=== PATIENT | female | born 1995 | race Two or more races ===

== ENCOUNTER 2016-09-27 07:12 | Inpatient (IN) | payer OTHER ==
[2016-09-26 14:00] VITALS: BP 107/88
[~2016-09-27] VITALS: Ht 147.3 cm; Wt 76.2 kg
[2016-09-27] VITALS (10 sets, daily range): BP systolic 89–135; BP diastolic 50–63
[~2016-09-27 07:12] MED LIST: FERR325T58 PO; HYDR-971 PO
[2016-09-27] MEDS ORDERED: CITRIC ACID/SODIUM CITRATE 30 ML SOLUTION. PO ONE (07:45)
[2016-09-27] MEDS ORDERED: ATROPINE 0.5 MG/5 ML DISP.SYRIN. IV PRN (07:45)
[2016-09-27] MEDS ORDERED: IV RINGERS,LACTATED 1000ML 1,000 ML IV PRN (07:45)
[2016-09-27] MEDS ORDERED: NALOXONE 0.4 MG/ML VIAL. IV PRN (07:45)
[2016-09-27] MEDS ORDERED: ePHEDrine PF IN SALINE 50 MG/5 ML DISP.SYRIN IV ONE (08:12)
[2016-09-27] MEDS ORDERED: PHENYLEPHRINE in 0.9% NACL PF 1 MG/10 ML DISP.SYRIN. IV ONE (08:13)
[2016-09-27] MEDS ORDERED: OXYTOCIN 10 UNIT/ML VIAL. ONE ×2 (08:13→09:50)
[2016-09-27] MEDS ORDERED: ONDANSETRON PF 4 MG/2 ML VIAL. ONE (08:15)
[2016-09-27] MEDS ORDERED: fentaNYL PF VIAL 100 MCG/2 ML VIAL ONE (08:15)
[2016-09-27] MEDS ORDERED: FAMOTIDINE 20 MG/2 ML VIAL ONE (08:15)
[2016-09-27] MEDS ORDERED: MORPHINE PF 5 MG/10 ML VIAL. ONE (08:15)
[2016-09-27] MEDS: IV RINGERS,LACTATED 1000ML 1,000 ML IV SCH ×2 (08:24→12:49)
[2016-09-27 08:26] LABS: BASO # 0.1 x10^3/uL (0.0-0.2); BASO % 0 % (0-3); EOS % 1 % (0-3); LYMPH # 2.3 x10^3/uL (1.0-4.8); LYMPH % 18 % (24-48); MEAN CORPUSCULAR HEMOGLOBIN 24 pg (25-35); MEAN CORPUSCULAR HGB CONC 33 g/dL (31-37); MEAN CORPUSCULAR VOLUME 74 fL (79-100); MONO % 6 % (0-9); NEUT % 75 % (31-73); PLATELET COUNT 344 x10^3/uL (140-400); RED BLOOD COUNT 4.08 x10^6/uL (3.50-5.40); RED CELL DISTRIBUTION WIDTH 15.6 % (11.5-14.5); WHITE BLOOD COUNT 13.2 x10^3/uL (4.0-11.0)
[2016-09-27] MEDS ORDERED: ONDANSETRON PF 4 MG/2 ML VIAL. IV PRN (09:30)
[2016-09-27] MEDS ORDERED: SIMETHICONE 80 MG TAB.CHEW PO PRN (09:30)
[2016-09-27] MEDS ORDERED: diphenhydrAMINE ORAL ELIXIR 12.5 MG/5 ML ML PO PRN (09:30)
[2016-09-27] MEDS ORDERED: ZOLPIDEM 5 MG TABLET. PO PRN (09:30)
[2016-09-27] MEDS ORDERED: 0.9 % SODIUM CHLORIDE 10 ML DISP.SYRIN. IV PRN (09:30)
[2016-09-27] MEDS ORDERED: MMR per PROTOCOL. MC PRN (09:30)
[2016-09-27] MEDS ORDERED: MAGNESIUM HYDROXIDE 2,400 MG/30 ML ORAL.SUSP. PO PRN (09:30)
[2016-09-27] MEDS ORDERED: OXYTOCIN 30 UNIT/500 ML PREMIX 500 ML IV PRN (09:30)
[2016-09-27] MEDS ORDERED: MAG HYDROX/ALUMINUM HYD/SIMETH 30 ML ORAL.SUSP PO PRN (09:30)
[2016-09-27] MEDS: KETOROLAC TROMETHAMINE 30 MG/ML INJ. IV PRN (12:48)
--- NOTE | 2016-09-27 14:34 | PDOC ---
BRIEF OPERATIVE NOTE Pre-Op Diagnosis TIUP Post-Op Diagnosis RLTC/S Procedure Performed RLTC/S Surgeon Curry Anesthesia Type: Regional Blood Loss 800c Findings Female 01/21 8#5oz Complications None KAITLYNN DONATO MD September 27, 2016 14:34
[2016-09-28 04:38] LABS: BASO % 0 % (0-3); EOS % 0 % (0-3); HEMATOCRIT 26.4 % (36.0-47.0); HEMOGLOBIN 8.4 g/dL (12.0-15.5); LYMPH # 1.2 x10^3/uL (1.0-4.8); LYMPH % 10 % (24-48); MEAN CORPUSCULAR HEMOGLOBIN 24 pg (25-35); MEAN CORPUSCULAR HGB CONC 32 g/dL (31-37); MEAN CORPUSCULAR VOLUME 75 fL (79-100); MONO % 7 % (0-9); NEUT % 83 % (31-73); PLATELET COUNT 263 x10^3/uL (140-400); RED BLOOD COUNT 3.52 x10^6/uL (3.50-5.40); RED CELL DISTRIBUTION WIDTH 15.8 % (11.5-14.5); WHITE BLOOD COUNT 12.5 x10^3/uL (4.0-11.0)
[2016-09-28] MEDS: KETOROLAC TROMETHAMINE 30 MG/ML INJ. IV PRN (05:51)
[2016-09-28 06:12] VITALS: BP 122/68
[2016-09-28 06:20] LABS: RPR REFLEX Non Reactive (Non Reactive)
[2016-09-28] MEDS: FERROUS SULFATE 325 MG TABLET. PO SCH ×2 (07:44→17:11)
[2016-09-28 11:20] VITALS: BP 110/62
[2016-09-28] MEDS: oxyCODONE/APAP 5/325 1 TAB TABLET PO PRN ×2 (11:42→15:11)
[2016-09-28] MEDS: IBUPROFEN 800 MG TABLET. PO SCH ×2 (11:42→19:53)
--- NOTE | 2016-09-28 13:43 | PDOC ---
OB Progress Note Date of Service 09/28/16 Time of Evaluation 1340 Notes PT. feeling well. Pain controlled. Lochia minimal. Bottle feeding. Lab Laboratory Tests Test 09/27/16 07:50 09/28/16 04:05 White Blood Count 13.2 x10^3/uL (4.0-11.0) 12.5 x10^3/uL (4.0-11.0) Red Blood Count 4.08 x10^6/uL (3.50-5.40) 3.52 x10^6/uL (3.50-5.40) Hemoglobin 10.0 g/dL (12.0-15.5) 8.4 g/dL (12.0-15.5) Hematocrit 30.0 % (36.0-47.0) 26.4 % (36.0-47.0) Mean Corpuscular Volume 74 fL (79-100) 75 fL (79-100) Mean Corpuscular Hemoglobin 24 pg (25-35) 24 pg (25-35) Mean Corpuscular Hemoglobin Concent 33 g/dL (31-37) 32 g/dL (31-37) Red Cell Distribution Width 15.6 % (11.5-14.5) 15.8 % (11.5-14.5) Platelet Count 344 x10^3/uL (140-400) 263 x10^3/uL (140-400) Neutrophils (%) (Auto) 75 % (31-73) 83 % (31-73) Lymphocytes (%) (Auto) 18 % (24-48) 10 % (24-48) Monocytes (%) (Auto) 6 % (0-9) 7 % (0-9) Eosinophils (%) (Auto) 1 % (0-3) 0 % (0-3) Basophils (%) (Auto) 0 % (0-3) 0 % (0-3) Neutrophils # (Auto) 9.9 x10^3uL (1.8-7.7) 10.3 x10^3uL (1.8-7.7) Lymphocytes # (Auto) 2.3 x10^3/uL (1.0-4.8) 1.2 x10^3/uL (1.0-4.8) Monocytes # (Auto) 0.8 x10^3/uL (0.0-1.1) 0.9 x10^3/uL (0.0-1.1) Eosinophils # (Auto) 0.1 x10^3/uL (0.0-0.7) 0.1 x10^3/uL (0.0-0.7) Basophils # (Auto) 0.1 x10^3/uL (0.0-0.2) 0.0 x10^3/uL (0.0-0.2) RPR Titer Additional Testing Non reactive (Non Reactive) Laboratory Tests Test 09/28/16 04:05 White Blood Count 12.5 x10^3/uL (4.0-11.0) Red Blood Count 3.52 x10^6/uL (3.50-5.40) Hemoglobin 8.4 g/dL (12.0-15.5) Hematocrit 26.4 % (36.0-47.0) Mean Corpuscular Volume 75 fL (79-100) Mean Corpuscular Hemoglobin 24 pg (25-35) Mean Corpuscular Hemoglobin Concent 32 g/dL (31-37) Red Cell Distribution Width 15.8 % (11.5-14.5) Platelet Count 263 x10^3/uL (140-400) Neutrophils (%) (Auto) 83 % (31-73) Lymphocytes (%) (Auto) 10 % (24-48) Monocytes (%) (Auto) 7 % (0-9) Eosinophils (%) (Auto) 0 % (0-3) Basophils (%) (Auto) 0 % (0-3) Neutrophils # (Auto) 10.3 x10^3uL (1.8-7.7) Lymphocytes # (Auto) 1.2 x10^3/uL (1.0-4.8) Monocytes # (Auto) 0.9 x10^3/uL (0.0-1.1) Eosinophils # (Auto) 0.1 x10^3/uL (0.0-0.7) Basophils # (Auto) 0.0 x10^3/uL (0.0-0.2) Medications Current Medications Ringer's Solution 1,000 ml @ 125 mls/hr Q8H IV Last administered on 09/27/16t 12:49; Start 09/27/16 at 07:41; Stop 09/27/16 at 19:40; Status DC Atropine Sulfate 0.5 mg PRN 1X PRN IV SEE COMMENTS; Start 09/27/16 at 07:45; Stop 09/28/16 at 07:44; Status DC Naloxone HCl (Narcan) 0.04 mg PRN Q2MIN PRN IV SEE COMMENTS; Start 09/27/16 at 07:45; Stop 09/28/16 at 07:44; Status DC Ringer's Solution 1,000 ml @ 125 mls/hr Q8H PRN IV PER PROTOCOL Last administered on 09/27/16t 22:06; Start 09/27/16 at 07:45 Cefazolin Sodium/ Dextrose 50 ml @ 100 mls/hr 1X ONCE IV ; Start 09/27/16 at 07:46; Stop 09/27/16 at 08:15; Status DC Citric Acid/ Sodium Citrate (Bicitra) 30 ml 1X ONCE PO ; Start 09/27/16 at 07: 45; Stop 09/27/16 at 07:47; Status DC Ephedrine Sulfate 50 mg STK-MED ONCE IV ; Start 09/27/16 at 08:12; Stop at 08:13; Status DC Phenylephrine HCl 1 mg STK-MED ONCE IV ; Start 09/27/16 at 08:13; Stop 09/27/16 at 08:14; Status DC Oxytocin (Pitocin) 10 unit STK-MED ONCE .ROUTE ; Start 09/27/16 at 08:13; Stop 09/27/16 at 08:14; Status DC Ondansetron HCl (Zofran) 4 mg STK-MED ONCE .ROUTE ; Start 09/27/16 at 08:15; Stop 09/27/16 at 08:16; Status DC Famotidine (Pepcid) 20 mg STK-MED ONCE .ROUTE ; Start 09/27/16 at 08:15; Stop at 08:16; Status DC Fentanyl Citrate (Fentanyl 2ml Vial) 100 mcg STK-MED ONCE .ROUTE ; Start at 08:15; Stop 09/27/16 at 08:16; Status DC Morphine Sulfate (Morphine Preservative Free) 5 mg STK-MED ONCE .ROUTE ; Start 09/27/16 at 08:15; Stop 09/27/16 at 08:16; Status DC Sodium Chloride (Normal Saline Flush) 3 ml QSHIFT PRN IV AFTER MEDS AND BLOOD DRAWS; Start 09/27/16 at 09:30 Oxytocin/Sodium Chloride 500 ml @ 125 mls/hr CONT PRN IV EXCESSIVE POST- BLEEDING; Start 09/27/16 at 09:30; Stop 09/27/16 at 17:29; Status DC Ibuprofen (Motrin) 800 mg Q8HRS PO Last administered on 09/28/16t 11:42; Start 09/27/16 at 14:00 Ondansetron HCl (Zofran) 4 mg PRN Q6HRS PRN IV NAUSEA/VOMITING; Start 09/27/16 at 09:30 Docusate Sodium (Colace) 100 mg PRN BID PRN PO CONSTIPATION; Start 09/27/16 at 09:30 Magnesium Hydroxide (Milk Of Magnesia) 2,400 mg PRN DAILY PRN PO CONSTIPATION; Start 09/27/16 at 09:30 Al Hydroxide/Mg Hydroxide (Mylanta Plus Xs) 30 ml PRN Q4HRS PRN PO HEARTBURN / GAS; Start 09/27/16 at 09:30 Simethicone (Gas-X) 80 mg PRN AFTMEALHC PRN PO GAS / BLOATING; Start 09/27/16 at 09:30 Diphenhydramine HCl (Benadryl Oral Elixir) 12.5 mg PRN Q6HRS PRN PO ITCHING Last administered on 09/28/16 05:51; Start 09/27/16 at 09:30 Ferrous Sulfate (Feosol) 325 mg BIDWMEALS PO Last administered on 09/28/16 07: 44; Start 09/27/16 at 17:00 Zolpidem Tartrate (Ambien) 5 mg PRN QHS PRN PO INSOMNIA, MAY REPEAT X1; Start 09/27/16 at 09:30 Info (Do NOT chart on this placeholder) 1 ea PRN 1X PRN MC SEE COMMENTS; Start 09/27/16 at 09:30 Info (Do NOT chart on this placeholder) 1 ea PRN 1X PRN MC SEE COMMENTS; Start 09/27/16 at 09:30 Oxycodone/ Acetaminophen (Percocet 5/325) 1 tab PRN Q4HRS PRN PO MILD PAIN Last administered on 09/28/16 11:42; Start 09/27/16 at 09:30 Oxycodone/ Acetaminophen (Percocet 5/325) 2 tab PRN Q4HRS PRN PO MODERATE PAIN , SEVERE PAIN; Start 09/27/16 at 09:30 Cefazolin Sodium 1 gm/Sodium Chloride 50 ml @ 100 mls/hr Q8H IV Last administered on 09/28/16 07:41; Start 09/27/16 at 16:00; Stop 09/28/16 at 08:29 ; Status DC Oxytocin (Pitocin) 10 unit STK-MED ONCE .ROUTE ; Start 09/27/16 at 09:50; Stop 09/27/16 at 09:51; Status DC Ketorolac Tromethamine (Toradol) 30 mg PRN Q6HRS PRN IV PAIN Last administered on 09/28/16 05:51; Start 09/27/16 at 12:30; Stop 10/02/16 at 12:29 Active Scripts Active Matthews 5-325 Tablet (Acetaminophen/Hydrocodone Bitart) 1 Each Tablet 1 Tab PO Q4- 6HRS Matthews 5-325 Tablet (Acetaminophen/Hydrocodone Bitart) 1 Each Tablet 1-2 Tab PO Q4-6HRS Iron Supplement (Ferrous Sulfate) 325 Mg Tablet 1 Tab PO DAILY Exam Abd: soft, non tender, fundus firm Incision site: clean, dry and intact Assessment POD#1 s/p c/s Plan of Care: Continue current Tx, Mgmt CARITO WILEY Jr, MD September 28, 2016 13:43
[2016-09-28 17:38] VITALS: BP 104/58
[2016-09-28] MEDS: DOCUSATE SODIUM 100 MG CAPSULE. PO PRN (19:53)
[2016-09-28 23:00] VITALS: BP 130/63
[2016-09-29] MEDS: IBUPROFEN 800 MG TABLET. PO SCH ×4 (06:00→22:00)
[2016-09-29 06:22] VITALS: BP 132/85
[2016-09-29] MEDS: oxyCODONE/APAP 5/325 1 TAB TABLET PO PRN ×4 (08:17→21:30)
[2016-09-29] MEDS: FERROUS SULFATE 325 MG TABLET. PO SCH ×2 (08:17→17:10)
[2016-09-29] MEDS: DOCUSATE SODIUM 100 MG CAPSULE. PO PRN ×2 (08:17→21:29)
[2016-09-29 11:10] VITALS: BP 103/65
--- NOTE | 2016-09-29 12:46 | PDOC ---
Provider Note Provider Note Doing well VSS Incision CDI KAITLYNN Weston AM, MD September 29, 2016 12:46
[2016-09-29 17:17] VITALS: BP 121/68
[2016-09-29 22:43] VITALS: BP 112/62
[2016-09-30 02:39] VITALS: BP 113/65
[2016-09-30] MEDS: IBUPROFEN 800 MG TABLET. PO SCH ×3 (02:45→11:00)
[2016-09-30] MEDS: oxyCODONE/APAP 5/325 1 TAB TABLET PO PRN ×2 (02:45→11:00)
[2016-09-30 06:01] VITALS: BP 117/71
--- NOTE | 2016-09-30 08:42 | PDOC ---
OB Progress Note Date of Service 09/30/16 Time of Evaluation 0840 Notes Pt. feeling well. No complaints. Medications Current Medications Ringer's Solution 1,000 ml @ 125 mls/hr Q8H IV Last administered on 09/27/16 12:49; Start 09/27/16 at 07:41; Stop 09/27/16 at 19:40; Status DC Atropine Sulfate 0.5 mg PRN 1X PRN IV SEE COMMENTS; Start 09/27/16 at 07:45; Stop 09/28/16 at 07:44; Status DC Naloxone HCl (Narcan) 0.04 mg PRN Q2MIN PRN IV SEE COMMENTS; Start 09/27/16 at 07:45; Stop 09/28/16 at 07:44; Status DC Ringer's Solution 1,000 ml @ 125 mls/hr Q8H PRN IV PER PROTOCOL Last administered on 09/27/16 22:06; Start 09/27/16 at 07:45; Stop 09/28/16 at 17:43 ; Status DC Cefazolin Sodium/ Dextrose 50 ml @ 100 mls/hr 1X ONCE IV ; Start 09/27/16 at 07:46; Stop 09/27/16 at 08:15; Status DC Citric Acid/ Sodium Citrate (Bicitra) 30 ml 1X ONCE PO ; Start 09/27/16 at 07: 45; Stop 09/27/16 at 07:47; Status DC Ephedrine Sulfate 50 mg STK-MED ONCE IV ; Start 09/27/16 at 08:12; Stop at 08:13; Status DC Phenylephrine HCl 1 mg STK-MED ONCE IV ; Start 09/27/16 at 08:13; Stop 09/27/16 at 08:14; Status DC Oxytocin (Pitocin) 10 unit STK-MED ONCE .ROUTE ; Start 09/27/16 at 08:13; Stop 09/27/16 at 08:14; Status DC Ondansetron HCl (Zofran) 4 mg STK-MED ONCE .ROUTE ; Start 09/27/16 at 08:15; Stop 09/27/16 at 08:16; Status DC Famotidine (Pepcid) 20 mg STK-MED ONCE .ROUTE ; Start 09/27/16 at 08:15; Stop at 08:16; Status DC Fentanyl Citrate (Fentanyl 2ml Vial) 100 mcg STK-MED ONCE .ROUTE ; Start at 08:15; Stop 09/27/16 at 08:16; Status DC Morphine Sulfate (Morphine Preservative Free) 5 mg STK-MED ONCE .ROUTE ; Start 09/27/16 at 08:15; Stop 09/27/16 at 08:16; Status DC Sodium Chloride (Normal Saline Flush) 3 ml QSHIFT PRN IV AFTER MEDS AND BLOOD DRAWS; Start 09/27/16 at 09:30; Stop 09/28/16 at 17:43; Status DC Oxytocin/Sodium Chloride 500 ml @ 125 mls/hr CONT PRN IV EXCESSIVE POST- BLEEDING; Start 09/27/16 at 09:30; Stop 09/27/16 at 17:29; Status DC Ibuprofen (Motrin) 800 mg Q8HRS PO Last administered on 09/30/16 02:45; Start 09/27/16 at 14:00 Ondansetron HCl (Zofran) 4 mg PRN Q6HRS PRN IV NAUSEA/VOMITING; Start 09/27/16 at 09:30; Stop 09/28/16 at 17:43; Status DC Docusate Sodium (Colace) 100 mg PRN BID PRN PO CONSTIPATION Last administered on 09/29/16 21:29; Start 09/27/16 at 09:30 Magnesium Hydroxide (Milk Of Magnesia) 2,400 mg PRN DAILY PRN PO CONSTIPATION; Start 09/27/16 at 09:30 Al Hydroxide/Mg Hydroxide (Mylanta Plus Xs) 30 ml PRN Q4HRS PRN PO HEARTBURN / GAS; Start 09/27/16 at 09:30 Simethicone (Gas-X) 80 mg PRN AFTMEALHC PRN PO GAS / BLOATING; Start 09/27/16 at 09:30 Diphenhydramine HCl (Benadryl Oral Elixir) 12.5 mg PRN Q6HRS PRN PO ITCHING Last administered on 09/28/16 05:51; Start 09/27/16 at 09:30 Ferrous Sulfate (Feosol) 325 mg BIDWMEALS PO Last administered on 09/29/16 17: 10; Start 09/27/16 at 17:00 Zolpidem Tartrate (Ambien) 5 mg PRN QHS PRN PO INSOMNIA, MAY REPEAT X1; Start 09/27/16 at 09:30 Info (Do NOT chart on this placeholder) 1 ea PRN 1X PRN MC SEE COMMENTS; Start 09/27/16 at 09:30 Info (Do NOT chart on this placeholder) 1 ea PRN 1X PRN MC SEE COMMENTS; Start 09/27/16 at 09:30 Oxycodone/ Acetaminophen (Percocet 5/325) 1 tab PRN Q4HRS PRN PO MILD PAIN Last administered on 09/29/16 17:10; Start 09/27/16 at 09:30 Oxycodone/ Acetaminophen (Percocet 5/325) 2 tab PRN Q4HRS PRN PO MODERATE PAIN , SEVERE PAIN Last administered on 09/30/16 02:45; Start 09/27/16 at 09:30 Cefazolin Sodium 1 gm/Sodium Chloride 50 ml @ 100 mls/hr Q8H IV Last administered on 09/28/16 07:41; Start 09/27/16 at 16:00; Stop 09/28/16 at 08:29 ; Status DC Oxytocin (Pitocin) 10 unit STK-MED ONCE .ROUTE ; Start 09/27/16 at 09:50; Stop 09/27/16 at 09:51; Status DC Ketorolac Tromethamine (Toradol) 30 mg PRN Q6HRS PRN IV PAIN Last administered on 09/28/16 05:51; Start 09/27/16 at 12:30; Stop 09/28/16 at 17:43; Status DC Active Scripts Active Gilchrist 5-325 Tablet (Acetaminophen/Hydrocodone Bitart) 1 Each Tablet 1 Tab PO Q4- 6HRS Gilchrist 5-325 Tablet (Acetaminophen/Hydrocodone Bitart) 1 Each Tablet 1-2 Tab PO Q4-6HRS Iron Supplement (Ferrous Sulfate) 325 Mg Tablet 1 Tab PO DAILY Exam Abd: soft, non tender, fundus firm Incision site: clean, dry and intact Assessment POD#3 s/p c/s Plan of Care: See new orders (D/c home.) CARITO WILEY Jr, MD September 30, 2016 08:42
--- NOTE | 2016-09-30 08:44 | DISCH ---
DISCHARGE INSTRUCTIONS Condition on Discharge Condition on Discharge: Stable Activity After Discharge Activity Instructions for Disc: Activity as tolerated Lifting Instructions after Dis: No heavy lifting Driving Instructions after Dis: Do not drive today Diet after Discharge Diet after Discharge: Regular Contacting the DRHemal after DC Call your doctor for: Concerns you may have Follow-Up Follow up with: Dr. Zapien in 1 wk. CARITO WILEY Jr, MD September 30, 2016 08:44
[2016-09-30] MEDS ORDERED: OXYC-323 PO (08:46)
[2016-09-30] MEDS ORDERED: NAPR500T PO (08:46)
[2016-09-30] MEDS ORDERED: DOCU-27 PO (08:46)
[2016-09-30] MEDS: FERROUS SULFATE 325 MG TABLET. PO SCH ×2 (09:03→17:25)
[2016-09-30] MEDS: DOCUSATE SODIUM 100 MG CAPSULE. PO PRN (09:03)
[2016-09-30 10:40] VITALS: BP 106/58
[2016-09-30 15:20] VITALS: BP 119/69
--- NOTE | 2016-09-30 16:27 | OP ---
DATE OF SURGERY: 09/27/2016 PREOPERATIVE DIAGNOSES: Term intrauterine , desires repeat -section. POSTOPERATIVE DIAGNOSES: Term intrauterine , desires repeat section. PROCEDURE: Repeat low-transverse . SURGEON: Catrachito Zapien M.D. CUSTOMER PROGRAM MANAGER: None. ANESTHESIA: Regional. ESTIMATED BLOOD LOSS: 800 mL. FINDINGS: Normal female infant, Apgars 8 and 9, 8 pounds 5 ounces. COMPLICATIONS: None. CONDITION: Stable. DESCRIPTION OF PROCEDURE: After risks, benefits, indications, and alternatives were discussed in detail with the patient, the patient was brought to the OR theater and placed in a supine position with left lateral uterine displacement. After adequate regional anesthesia, the patient was prepped and draped in the usual sterile manner. Previous Pfannenstiel incision was taken out in toto with scalpel and Bovie cautery. Subcutaneous tissue was taken down with Bovie cautery. Rectus fascia was nicked in the midline and extended laterally in each direction with Bovie cautery. Upper edge of rectus fascia was grasped x 2 with Genna clamps, elevated above the rectus muscle, and - both bluntly and sharply with Bovie cautery. Same procedure was carried out on the lower edge of rectus fascia. Peritoneum was entered sharply with Metzenbaum scissors. There was some significant adhesive disease of the bladder and the uterus to the anterior abdominal wall. The bladder was taken down both sharply and bluntly with Metzenbaum scissors and open Ray Daina. The bladder integrity was ____ firm by bringing the Ledesma to the dome of the bladder and traced in the dome of the bladder with the Ledesma in it. A low-transverse hysterotomy incision was made sharply with a scalpel and extended laterally in each direction with a gloved hand. Membranes were ruptured. Clear fluid was noted. Gloved hand was placed into the lower uterine segment, using to elevate the head. With fundal pressure from the energy assistant, the infant was delivered on the anterior abdominal wall. cried spontaneously and moved all extremities. Cord was doubly clamped, transected cord between two clamps, cord blood samples were taken, and the infant was also handed off to nursing care in attendance. Placenta was delivered spontaneously intact, 3-vessel cord. Any adherent membranes were wiped free with a laparotomy sponge. The low-transverse hysterotomy incision was re-approximated with 0 Monocryl in a running locking manner, imbricated with 0 Monocryl in a vertical mattress stitch fashion. The adherence of the uterus to the anterior abdominal wall was taken down with Bovie cautery. The cervix of the uterus was re-approximated with 0 Monocryl in a running locking manner. The areas of bleeding were controlled with [id number] stitches. ____ was placed in the base of the lower uterine segment, where the bladder was dissected off for additional hemostasis. The rectus muscle was inspected and noted to be hemostatic. We did not use the Thiago retractor. The pelvic gutters were inspected and noted to be free of any debris or blood. The rectus muscle was re-approximated with 3-0 Vicryl in a horizontal mattress stitch fashion. Rectus fascia was re-approximated with 0 PDS in a running manner. Subcutaneous tissue was irrigated copiously with warm normal saline. Zoe's fascia was re-approximated with 2-0 plain in a running manner. Skin was re-approximated with Insorb saira. Sponge, needle and instrument counts were correct x 2 per the nursing staff. CATRACHITO ZAPIEN MD DR: JOJO/chavez JOB#: [id number] / [id number]
[2016-09-30 18:28] VITALS: BP 119/72
== END 2016-09-30 18:50 | disposition home or self-care (01) | DRG 766 ==
LOC: 3 SO LND 07:12 → 3 NORTH 13:55
PROVIDERS: ADMIT Specialist; ATTEND Specialist
PROC: 10D00Z1 Extraction of Products of Conception, Low, Open Approach (ICD-10-PCS; principal; 2016-09-30)
DX: O34.211 Maternal care for low transverse scar from previous cesarean delivery (principal); Z37.0 Single live birth; Z3A.39 39 weeks gestation of pregnancy; D50.0 Iron deficiency anemia secondary to blood loss (chronic); O99.02 Anemia complicating childbirth
CPT/HCPCS: 36415; 85027; 86593; 86850; 86900; 86901; J0690; J1885; J2270; J2370; J2405; J2590; J3010; J7120; S0028